=== PATIENT | male | born 1955 | race Caucasian/White ===

== ENCOUNTER 2017-05-23 23:23 | Inpatient (IN) | payer OTHER ==
[~2017-05-23] VITALS: Ht 2 cm; Wt 93.9 kg
--- NOTE | ~2017-05-23 | 2DMMODE ---
[facility] [address] [place] [address] 2 D/M-MODE ECHOCARDIOGRAM Name: JESUS LIMA Room #: 216-P [facility] IN ..#: [id number] Admission: 05/24/17 Attend Phys: Mey Benjamin Discharge: Date of : 53 Date of Service: 05/24/17 1403 Report #: [id number] THIS REPORT FOR: //name// APPROVED REPORT Study performed: 05/24/2017 12:25:37 EXAM: Comprehensive 2D, Doppler, and color-flow Echocardiogram Patient Location: Bedside Room #: 216 Status: routine Other Information Study Quality: Adequate Indications Congestive Heart Failure Diabetes CAD Hypertension/HDD 2D Dimensions RVDd: 32.37 mm LVEF(%): 53.62 (>50%) IVSd: 15.26 (7-11mm) LVOT Diam: 27.06 (18-24mm) LVDd: 48.58 mm PWd: 16.00 (7-11mm) Ascending Ao: 35.92 (22-36mm) LVDs: 35.12 (25-40mm) Aortic Root: 35.80 mm IVC: 15.00 mm Da Silva's LVEF: 53.62 % Volumes Left Atrial Volume (Systole) Single Plane 4CH: 41.99 mL Single Plane 2CH: 44.28 mL LA ESV Index: 22.00 mL/m2 Aortic Valve AoV Peak Leo.: 1.17 m/s AO Peak Gr.: 5.50 mmHg LVOT Max P.31 mmHg LVOT Max V: 0.91 m/s MARLENA Vmax: 4.46 cm2 Mitral Valve E/A Ratio: 0.6 MV Decel. Time: 307.85 ms MV E Max Leo.: 0.69 m/s [facility] [place] [address] 2 D/M-MODE ECHOCARDIOGRAM Name: JESUS LIMA Room #: 216-P [facility] IN ..#: [id number] Admission: 05/24/17 Attend Phys: Mey Benjamin Discharge: Date of : 53 Date of Service: 05/24/17 1403 Report #: [id number] MV A Leo.: 1.21 m/s MV PHT: 89.28 ms IVRT: 166.09 ms Pulmonary Valve PV Peak Leo.: 1.09 m/s PV Peak Gr.: 4.77 mmHg Pulmonary Vein P Vein S: 0.61 m/s P Vein A: 0.11 m/s P Vein D: 0.40 m/s P Vein A Dur.: 90.0 msec P Vein S/D Ratio: 1.52 Tricuspid Valve RAP Estimate: 5.00 mmHg Left Ventricle The left ventricle is normal size. Hypokinesis of inferior segment. Moderate concentric left ventricular hypertrophy. Left ventricular systolic function is mildly impaired. LVEF is 40-45%. Mild diastolic dysfunction is present (impaired relaxation pattern). Right Ventricle The right ventricle is normal size. The right ventricular systolic function is normal. Atria The left atrium size is normal. The right atrium size is normal. Aortic Valve The aortic valve is normal in structure. No aortic regurgitation is present. There is no aortic valvular stenosis. Mitral Valve The mitral valve is normal in structure. There is no mitral valve regurgitation noted. No evidence of mitral valve stenosis. Tricuspid Valve The tricuspid valve is normal in structure. There is no tricuspid valve regurgitation noted. Pulmonic Valve The pulmonary valve is normal in structure. There is no pulmonic valvular regurgitation. [employer] [place] [address] [address] 2 D/M-MODE ECHOCARDIOGRAM Name: JESUS LIMA Room #: 216-P [facility] IN .R.#: [id number] Admission: 05/24/17 Attend Phys: Mey Benjamin Discharge: Date of : 53 Date of Service: 05/24/17 1403 Report #: [id number] The aortic root is normal in size. IVC is normal in size and collapses >50% with inspiration. <Conclusion> Technically difficult study. The left ventricle is normal size. There is mild LV systolic dysfunction. Moderate concentric left ventricular hypertrophy. Mild diastolic dysfunction is present (impaired relaxation pattern). The right ventricle is normal size. The left atrium size is normal. The aortic valve is normal in structure. The mitral valve is normal in structure. <ELECTRONICALLY SIGNED> By: Samuel Wynne MD 05/24/17 1403 1403 140 Samuel Wynne MD /INF
--- NOTE | ~2017-05-23 | EKG ---
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
--- NOTE | ~2017-05-23 | HC ---
[facility] [place] [address] CONSULTATION Name: JESUS LIMA Room #: 216-P [facility] IN ..#: [id number] Admission: 05/24/17 Attend Phys: Bonifacio Correa MD Discharge: Date of : 53 Report #: [id number] THIS REPORT FOR: //name// CC: Bonifacio Whipple INDICATION: Troponin elevation. HISTORY OF PRESENT ILLNESS: This is a 61-year-old gentleman with a history of CABG, diabetes mellitus, hypertension, who was transferred from [facility] for elevated troponin level. The patient presented to [facility] with initial complaint of generalized weakness and falls. Recently, he has had multiple falls secondary to weakness of his legs. He was unable to stand on his own. At one point, he was on the ground for at least 5 hours before he was able to get any assistance. There is no history of loss of consciousness, chest pains, shortness of breath, fevers or congestion. The patient reports that he has not been taking any medication secondary to financial difficulties. He has not had any recent followup with his primary care physician. He has seen Dr. Carrillo in the past. PAST MEDICAL HISTORY: History of 3-vessel CABG, chronic kidney disease, diabetes mellitus, hypertension, hypercholesterolemia, near syncope. ALLERGIES: PENICILLIN. MEDICATIONS: None secondary to financial difficulties. SOCIAL HISTORY: Negative for tobacco use. FAMILY HISTORY: Negative for premature CAD. REVIEW OF SYSTEMS: A full 10-point review of systems performed, only the pertinent positives and negatives are described in the HPI. PHYSICAL EXAMINATION: VITAL SIGNS: Blood pressure is 155/80, heart rate is 68 beats per minute. GENERAL APPEARANCE: A well-developed, well-nourished male in no acute respiratory distress. HEAD AND EYES: Normocephalic. Sclerae anicteric. ENT: Oral mucosa moist. NECK: Supple, no JVD. LUNGS: Clear to auscultation. CARDIAC: Regular rate and rhythm, S1, S2 positive. ABDOMEN: Soft. EXTREMITIES: No major joint deformities. Trace edema. SKIN: No rashes, no bruising. NEUROLOGIC: Alert and oriented. [facility] [address] [place] [address] CONSULTATION Name: JESUS LIMA Room #: 216-P [facility] IN [facility].#: [id number] Admission: 05/24/17 Attend Phys: Bonifacio Correa MD Discharge: Date of : 53 Report #: [id number] ECG reveals sinus rhythm, nonspecific IVCD, nonspecific T-wave abnormalities. LABORATORY VALUES: Peak troponin level is 0.4, white count is 8.5, hemoglobin is 12.9. Sodium is 139, creatinine is 2.5. IMPRESSION/PLAN: 1. Minimal troponin elevation in the indeterminate range. Clinically stable with no symptoms of angina or dyspnea. May be related to oxygen mismatch secondary to stress from inability to get off the floor. Given his underlying renal insufficiency, I would recommend continuing with conservative therapy. We will resume aspirin and a low dose beta rayshawn. 2. Weakness/fall/inability to stand. Probably needs and neurologic evaluation. 3. Hypertension, we will resume meds, avoid REFUGIO inhibitor for now. 4. Chronic renal insufficiency, may improve with hydration. 5. Diabetes mellitus, as per PCP. <ELECTRONICALLY SIGNED> By: Samuel Wynne MD 05/24/17 2038 1105 1205 Samuel Wynne MD /nt
--- NOTE | ~2017-05-23 | HC ---
[facility] [place] [address] CONSULTATION Name: JESUS LIMA Room #: 442-P ADM IN .R.#: [id number] Admission: 05/24/17 Attend Phys: Bonifacio Correa MD Discharge: Date of : 53 Report #: [id number] THIS REPORT FOR: //name// CC: Bonifacio Whipple DATE OF SERVICE: 05/27/2017 DATE OF CONSULTATION: 05/27/2017 HISTORY OF PRESENT ILLNESS: The patient is a 61-year-old male admitted from [facility] with elevated troponin, renal failure, multiple falls, lying on the floor, unable to get up. He notes that he has had several falls and was lying on the floor for up to 5 hours. There was a lady that lives in an apartment next door that checks in on him daily and found him. He had apparently been out of his medication secondary to finances. He was transferred from [facility] to [facility] for further evaluation. He was diagnosed with non-ST elevation myocardial infarction. Cardiology is involved and he is to be medically managed. He has [id number] renal failure. He does have congestive heart failure, [id number]. He also has hypertension. Neurology has seen him and further workup is underway as far as his falls and complaints of weakness. He is to have an MRI of the brain and lumbosacral spine. He is also to have x-rays of his feet, as he complains of his feet hurting. We are seeing him in rehabilitation medicine consultation. PAST MEDICAL HISTORY: Includes congestive heart failure, [place] x 2, coronary artery disease, status post coronary artery bypass grafting x 3 in 2010, hypertension, diabetes mellitus type 2, chronic kidney disease, and hyperlipidemia. PAST SURGICAL HISTORY: Includes coronary artery bypass grafting, cataract surgery, hernia repair. FAMILY HISTORY: Includes colon cancer. HABITS: No history of tobacco or alcohol abuse. SOCIAL HISTORY: Lives in an apartment alone in [place], [place], uses a 4-wheeled walker. No steps are noted. REVIEW OF SYSTEMS: Did not offer any current complaints of chest pain, shortness of breath or abdominal discomfort. PHYSICAL EXAMINATION: GENERAL: A 61-year-old white male in no obvious distress. [address] [address] CONSULTATION Name: JESUS LIMA Room #: 442-P [facility] IN .R.#: [id number] Admission: 05/24/17 Attend Phys: Bonifacio Correa MD Discharge: Date of : 53 Report #: [id number] VITAL SIGNS: Last recorded temperature 97.3, pulse 68, respirations 18, blood pressure 170/74. The patient is alert, oriented. HEENT: Appeared to be benign. NEUROLOGIC: Cranial nerves are grossly intact. Facies are symmetric. He has functional range of motion of both upper extremities with strength of grade 4-/5. DTRs are trace to 1. In his lower extremities, there is no focal calf swelling. He does have some discomfort with range of motion of his ankles. There is no erythema noted. No focal tender areas. Strength of the lower extremities is probably a grade 4-/5. He does have decreased proprioception right large toe. Functionally, he has been max assist x 2 sit to supine. ____ max assist for sitting balance. ASSESSMENT: A 61-year-old white male with the following problem lists: 1. Multiple falls with generalized weakness. He has pain in both feet. Neurology is involved with x-rays of his feet. MRI scan of his brain and lumbar spine. He complains of generalized weakness and dizziness. 2. Non-ST elevation myocardial infarction. 3. Renal failure, acute on chronic. 4. Congestive heart failure, acute on chronic. 5. Hypertension. 6. Diabetes mellitus. PLAN: Therapies are working with him to try to improve his strength, endurance and ADL independence. Neurologic workup is underway. manager gas are working on discharge planning. We will follow along with you. <ELECTRONICALLY SIGNED> By: Tony Byrne MD 05/29/17 1350 1126 1320 Tony Byrne MD /nt
[~2017-05-23 23:23] MED LIST: ACCUPRIL40 MG PO; AMLODIPINE BESYL5 M1 PO; ASPIR 8181 MG PO; ATORVASTATIN CA40 MG PO; CARVEDILOL12.5 MG PO; NITROGLYCERIN0.4 MG SUBLING; QUINAPRIL 20 MG20 MG PO
[2017-05-24] VITALS (7 sets, daily range): BP systolic 145–200; BP diastolic 67–95
[2017-05-24] MEDS ORDERED: LEXAPRO 10 MG T10 M1 PO (03:21)
[2017-05-24] MEDS ORDERED: PRINIVIL20 MG PO (03:22)
[2017-05-24] MEDS ORDERED: AMARYL2 MG PO (03:22)
[2017-05-24] MEDS ORDERED: NORVASC5 MG PO (03:25)
[2017-05-24] MEDS ORDERED: NITRO-DUR SUBLING (03:25)
[2017-05-24] MEDS ORDERED: POTASSIUM CL ER PO (03:26)
[2017-05-24 10:19] LABS: ABSOLUTE NEUTROPHILS 5.3 thou/uL (1.4-8.2); BASOPHILS 0.8 % (0.0-2.0); EOSINOPHILS 3.1 % (0.0-3.0); HEMATOCRIT 36.7 % (42.0-52.0); HEMOGLOBIN 12.9 gm/dL (14.0-18.0); LYMPHOCYTES 23.3 % (24.0-44.0); MCH 32.5 pg (26.0-34.0); MCV 92.7 fL (80.0-100.0); MONOCYTES 10.5 % (1.0-8.0); PLATELET COUNT 269 thou/uL (150-400); POLYS 62.3 % (36.0-66.0); RBC 3.96 mil/uL (4.50-6.00); RDW 12.5 % (10.5-14.5); WBC 8.5 thou/uL (4.0-11.0)
[2017-05-24 10:27] LABS: MANUAL DIFF NO
[2017-05-24 10:33] LABS: APTT 40.1 Seconds (24.5-32.8)
[2017-05-24 10:40] LABS: PHOSPHORUS 4.1 mg/dL (2.5-4.9); TROPONIN-I 0.4 ng/mL (<0.04-0.07)
[2017-05-24 10:57] LABS: ALBUMIN 3.3 g/dL (3.4-5.0); CALCIUM 11.2 mg/dL (8.5-10.1); CREATININE 2.5 mg/dL (0.7-1.3); TOTAL BILIRUBIN 0.7 mg/dL (<0.1-1.0); TOTAL PROTEIN 6.9 g/dL (6.4-8.2)
[2017-05-24 17:32] LABS: MAGNESIUM 1.8 mg/dL (1.8-2.4); POTASSIUM 3.2 mmol/L (3.5-5.1)
[2017-05-25 03:45] VITALS: BP 155/68
[2017-05-25 05:09] LABS: HEMATOCRIT 33.4 % (42.0-52.0); HEMOGLOBIN 11.6 gm/dL (14.0-18.0); MCH 32.6 pg (26.0-34.0); MCHC 34.8 g/dL (28.0-37.0); MCV 93.6 fL (80.0-100.0); RBC 3.57 mil/uL (4.50-6.00); RDW 12.5 % (10.5-14.5); WBC 10.5 thou/uL (4.0-11.0)
[2017-05-25 05:27] LABS: CALCIUM 9.8 mg/dL (8.5-10.1); CREATININE 2.2 mg/dL (0.7-1.3); POTASSIUM 3.6 mmol/L (3.5-5.1); TOTAL BILIRUBIN 0.5 mg/dL (<0.1-1.0); TOTAL PROTEIN 6.3 g/dL (6.4-8.2)
[2017-05-25 07:30] VITALS: BP 165/74
[2017-05-25 15:30] VITALS: BP 147/70
[2017-05-25 19:09] VITALS: BP 111/51
[2017-05-26 05:52] VITALS: BP 165/63
[2017-05-26 07:44] VITALS: BP 157/67
[2017-05-26 09:48] LABS: ABSOLUTE NEUTROPHILS 7.6 thou/uL (1.4-8.2); BASOPHILS 0.5 % (0.0-2.0); EOSINOPHILS 1.2 % (0.0-3.0); HEMATOCRIT 31.9 % (42.0-52.0); HEMOGLOBIN 11.1 gm/dL (14.0-18.0); LYMPHOCYTES 13.2 % (24.0-44.0); MCH 32.4 pg (26.0-34.0); MCHC 34.7 g/dL (28.0-37.0); MCV 93.5 fL (80.0-100.0); PLATELET COUNT 258 thou/uL (150-400); POLYS 74.1 % (36.0-66.0); RBC 3.42 mil/uL (4.50-6.00); RDW 12.2 % (10.5-14.5); WBC 10.3 thou/uL (4.0-11.0)
[2017-05-26 09:49] LABS: MANUAL DIFF NO
[2017-05-26 09:59] LABS: CALCIUM 9.2 mg/dL (8.5-10.1); CREATININE 2.2 mg/dL (0.7-1.3); POTASSIUM 3.5 mmol/L (3.5-5.1)
[2017-05-26 11:26] LABS: URINE BILIRUBIN NEGATIVE (Negative); URINE BLOOD TRACE (Negative); URINE COLOR YELLOW; URINE GLUCOSE-RANDOM* 1+ (Negative); URINE KETONES NEGATIVE (Negative); URINE NITRITE NEGATIVE (Negative); URINE PROTEIN (DIPSTICK) 3+ (Negative); URINE SPECIFIC GRAVITY 1.025 (1.003-1.035); URINE UROBILINOGEN 0.2 E.U./dl (0.2-1.0)
[2017-05-26 11:35] LABS: BACTERIA 1-9 Few /HPF (None Seen); CRYSTALS None Seen /LPF (None Seen); HYALINE CASTS 0-3 Few /LPF (None Seen); SQUAMOUS 0-3 Few /LPF (0-3); URINE RBC 0-2 Rare /HPF (0-2); URINE WBC 0-5 Rare /HPF (0-5)
[2017-05-26 15:19] VITALS: BP 129/63
[2017-05-26 19:22] VITALS: BP 121/50
[2017-05-27 04:20] VITALS: BP 155/60
[2017-05-27 07:31] VITALS: BP 170/74
[2017-05-27 10:41] LABS: CALCIUM 8.9 mg/dL (8.5-10.1); CREATININE 2.2 mg/dL (0.7-1.3); POTASSIUM 3.5 mmol/L (3.5-5.1)
[2017-05-27 11:25] LABS: TSH 4.169 uIU/mL (0.358-3.740)
[2017-05-27 15:57] VITALS: BP 188/82
[2017-05-27 19:17] VITALS: BP 140/52
[2017-05-28 03:20] VITALS: BP 185/80
[2017-05-28 08:00] VITALS: BP 152/57
[2017-05-28 15:31] LABS: CALCIUM 8.7 mg/dL (8.5-10.1); MAGNESIUM 1.7 mg/dL (1.8-2.4); POTASSIUM 3.7 mmol/L (3.5-5.1)
[2017-05-28 16:00] VITALS: BP 136/52
[2017-05-28 19:55] VITALS: BP 138/70
[2017-05-29 03:45] VITALS: BP 171/75
[2017-05-29 06:07] LABS: CALCIUM 8.3 mg/dL (8.5-10.1); CREATININE 1.7 mg/dL (0.7-1.3); MAGNESIUM 1.7 mg/dL (1.8-2.4); POTASSIUM 3.3 mmol/L (3.5-5.1)
[2017-05-29 09:01] VITALS: BP 180/55
[2017-05-29 16:35] VITALS: BP 144/56
[2017-05-29 19:15] VITALS: BP 145/54
[2017-05-30 03:45] VITALS: BP 178/81
[2017-05-30 06:48] LABS: CALCIUM 8.6 mg/dL (8.5-10.1); CREATININE 1.6 mg/dL (0.7-1.3); MAGNESIUM 1.8 mg/dL (1.8-2.4); POTASSIUM 3.2 mmol/L (3.5-5.1)
[2017-05-30 08:00] VITALS: BP 198/85
[2017-05-30 12:00] VITALS: BP 161/74
[2017-05-30 16:00] VITALS: BP 188/87
[2017-05-30 19:11] VITALS: BP 144/60
[2017-05-31 03:13] VITALS: BP 146/65
[2017-05-31 07:54] VITALS: BP 138/63
[2017-05-31 16:06] VITALS: BP 138/63
[2017-05-31 20:23] VITALS: BP 183/75
[2017-06-01 04:56] VITALS: BP 192/69
[2017-06-01 09:02] VITALS: BP 173/59
[2017-06-01 13:47] LABS: CALCIUM 8.9 mg/dL (8.5-10.1); CREATININE 1.6 mg/dL (0.7-1.3); MAGNESIUM 1.8 mg/dL (1.8-2.4); POTASSIUM 3.6 mmol/L (3.5-5.1)
[2017-06-01 14:12] VITALS: BP 150/58
[2017-06-01 20:20] VITALS: BP 174/63
[2017-06-02 00:55] VITALS: BP 155/55
[2017-06-02 04:30] VITALS: BP 150/65
[2017-06-02 08:00] VITALS: BP 182/76
[2017-06-02 14:36] VITALS: BP 182/76
[2017-06-02] MEDS ORDERED: FLOMAX0.4 MG PO (15:02)
[2017-06-02] MEDS ORDERED: CARVEDILOL6.25 MG PO (15:02)
[2017-06-02] MEDS ORDERED: PROTONIX 20 MG20 M1 PO (15:03)
== END 2017-06-02 16:24 | disposition home or self-care (01) | DRG 280 ==
LOC: 2N 23:23 → 4S 05-24 01:13
PROVIDERS: Family Medicine; Hospitalist; Internal Medicine; Nurse Practitioner Family; Psychiatry & Neurology Neurology
DX: I13.0 Hypertensive heart and chronic kidney disease with heart failure and stage 1 through stage 4 chronic kidney disease, or unspecified chronic kidney disease (principal); I21.4 Non-ST elevation (NSTEMI) myocardial infarction; N17.0 Acute kidney failure with tubular necrosis; I25.10 Atherosclerotic heart disease of native coronary artery without angina pectoris; E78.5 Hyperlipidemia, unspecified; I11.0 Hypertensive heart disease with heart failure; I50.9 Heart failure, unspecified; E83.42 Hypomagnesemia; E11.65 Type 2 diabetes mellitus with hyperglycemia; E83.52 Hypercalcemia; E87.6 Hypokalemia; K59.00 Constipation, unspecified; E11.42 Type 2 diabetes mellitus with diabetic polyneuropathy; E11.22 Type 2 diabetes mellitus with diabetic chronic kidney disease; N18.9 Chronic kidney disease, unspecified; S92.351A Displaced fracture of fifth metatarsal bone, right foot, initial encounter for closed fracture; K21.9 Gastro-esophageal reflux disease without esophagitis; W18.39XA Other fall on same level, initial encounter; Z79.899 Other long term (current) drug therapy; Z88.0 Allergy status to penicillin; Z79.4 Long term (current) use of insulin; Z95.1 Presence of aortocoronary bypass graft; Z98.42 Cataract extraction status, left eye; Z98.41 Cataract extraction status, right eye; Y93.89 Activity, other specified; Y92.89 Other specified places as the place of occurrence of the external cause; Y99.8 Other external cause status; I25.2 Old myocardial infarction; Z86.73 Personal history of transient ischemic attack (TIA), and cerebral infarction without residual deficits
CPT/HCPCS: 10081; 10102